=== PATIENT | male | born 1950 | race Caucasian/White ===

== ENCOUNTER → 2020-11-08 | Outpatient (CLI) | payer MEDICARE, OTHER ==
--- NOTE | 2020-11-08 14:37 | KCIC ---
Examination: MRI of the right shoulder without contrast History: history of adhesive capsulitis, decreased range of motion COMPARISON: None available Technique: Multiplanar, multisequence MR imaging of the right shoulder performed without contrast. FINDINGS: The long head of the biceps tendon within the bicipital groove. The attachment of the long head the b iceps tendon to the superior labral anchor grossly appears intact. Mild increased signal identified i n the intra-articular portion of the biceps tendon likely mild tendinosis. There is moderate increase d T2 signal identified in the supraspinatus, infraspinatus tendon likely tendinosis. Mild anterolisth esis of the labrum. There is moderate joint space loss identified in the knee joint acromioclavicular joint likely degenerative changes. There is mild increased T2 signal identified in the abdomen likel y sprain The muscle bulk grossly appears unremarkable. Examination limited due to motion artifact. There is obscuration of fat in the rotator interval. The acromion is type II. IMPRESSION: 1. Obscuration of fat in the rotator interval likely adhesive capsulitis. 2. Increased T2 signal identified in the acromioclavicular joint could be mild sprain. Moderate degen erative changes identified in the acromioclavicular joint, glenohumeral joint. 3.Moderate tendinosis rotator cuff. 4.Examination limited due to motion artifact. Electronically signed by: Magdiel Shore MD (11/08/2020 2:35 PM) [id number]
== END ==
LOC: KCIC MRI 12:41
PROVIDERS: ATTEND Orthopaedic Surgery
DX: M19.011 Primary osteoarthritis, right shoulder (principal); M75.101 Unspecified rotator cuff tear or rupture of right shoulder, not specified as traumatic
CPT/HCPCS: 73221